=== PATIENT | female | born 1945 | race American Indian/Alaskan Native ===

== ENCOUNTER 2016-10-04 14:28 | Outpatient (CLI) | payer MEDICARE ==
--- NOTE | 2016-10-04 15:18 | Mammography Report ---
BILATERAL MAMMOGRAM: FINDINGS: The breasts are almost entirely fat (<25% glandular). No mass, distortion, suspicious calcification, or skin change is seen. There is no significant change compared to a prior exam in January 2014. CAD was utilized. IMPRESSION: Negative mammogram. There is no mammographic evidence of malignancy. RECOMMENDATION: Follow-up per ACS guidelines. BI-RADS CATEGORY: 1 = Negative ACR BI-RADS MAMMOGRAPHIC CODES: 0 = Needs additional imaging evaluation; 1 = Negative; 2 = Benign; 3 = Probably benign; 4 = Suspicious; 5 = Malignant; 6 = Known biopsy-proven malignancy COMMENT: 1. Dense breast tissue, i.e., adenosis, fibrocystic changes, etc., may obscure an underlying neoplasm. 2. Approximately 10% of cancers are not detected with mammography. 3. A negative mammography report should not delay biopsy if a clinically suspicious mass is present. COMMENT: Patient follow-up letters are generated in [employer].
== END 2016-10-04 14:29 | disposition home or self-care (01) ==
LOC: MAMMO 14:28
PROVIDERS: ATTEND Physician Assistant
DX: Z12.31 Encounter for screening mammogram for malignant neoplasm of breast (principal)
CPT/HCPCS: 77067; G0202

== ENCOUNTER 2017-07-07 11:21 | Outpatient (CLI) | payer MEDICARE ==
--- NOTE | 2017-07-07 23:28 | Ultrasound Report ---
FINAL REPORT PROCEDURE: Thyroid ultrasound. TECHNIQUE: Focused real-time sonography in multiple planes of the below described organs, glands and soft tissues of the neck was performed with image documentation. CPT 73066 HISTORY: Enlarged thyroid. COMPARISON: No prior studies are available for comparison. FINDINGS: The right lobe of the thyroid measures 6.7 centimeters x 3.4 centimeters x 3.0 centimeters. The left lobe of the thyroid measures 5.4 centimeters x 2.0 centimeters x 1.9 centimeters. The isthmus measures 0.4 centimeters in thickness. The thyroid gland has inhomogeneous echotexture. There are at least 3 focal masses in the right lobe and at least 4 focal masses in the left lobe. These masses are predominantly solid and hypoechoic. There are some cystic areas. The largest mass in the right lobe is in the midportion measuring 2.8 centimeters x 1.7 centimeters x 2.9 centimeters. The largest mass in the left lobe is also in the midportion measuring 1.9 centimeters x 1.0 centimeters x 1.4 centimeters. IMPRESSION: Multinodular goiter.
== END 2017-07-07 11:22 | disposition home or self-care (01) ==
LOC: US 11:21
PROVIDERS: ATTEND Family Medicine Adult Medicine
DX: E04.2 Nontoxic multinodular goiter (principal); E04.9 Nontoxic goiter, unspecified; E07.89 Other specified disorders of thyroid
CPT/HCPCS: 76536